=== PATIENT | female | born 1975 | race Caucasian/White ===

== ENCOUNTER 2018-04-25 09:42 | Emergency (ER) | payer OTHER ==
[2018-04-25] MEDS: IBUPROFEN 800 MG TAB PO (10:45)
== END 2018-04-25 11:33 | disposition home or self-care (01) ==
LOC: M ED 09:42
DX: S80.02XA Contusion of left knee, initial encounter (principal); S80.212A Abrasion, left knee, initial encounter; W01.0XXA Fall on same level from slipping, tripping and stumbling without subsequent striking against object, initial encounter; Y92.018 Other place in single-family (private) house as the place of occurrence of the external cause; Z79.51 Long term (current) use of inhaled steroids; Z88.0 Allergy status to penicillin; Z88.1 Allergy status to other antibiotic agents; Z88.2 Allergy status to sulfonamides; Z88.8 Allergy status to other drugs, medicaments and biological substances; F17.210 Nicotine dependence, cigarettes, uncomplicated
CPT/HCPCS: 73564

== ENCOUNTER 2019-10-23 08:37 | Emergency (ER) | payer OTHER ==
[~2019-10-23] VITALS: Ht 162.6 cm; Wt 105.4 kg
[~2019-10-23 08:37] MED LIST: FLON1SPR NARES
[2019-10-23] MEDS ORDERED: SING10TA32 PO (08:46)
[2019-10-23] MEDS ORDERED: GI COCKTAIL 50ML BTL(HYOSCYAMINE/MAALOX/LIDOCAINE VISCOUS)(1:3:1) PO ONE (09:15)
[2019-10-23] MEDS ORDERED: ONDANSETRON 4MG/2ML VIAL (J2405) IV ONE (09:15)
[2019-10-23] MEDS ORDERED: NS 1,000 ML IV ONE (09:15)
[2019-10-23 09:27] LABS: BASO # 0.1 10^3/uL (0.0-0.2); BASO % 0.7 % (0.0-1.0); EOS # 0.1 10^3/uL (0.0-0.5); EOS % 1.7 % (0.0-3.0); HEMATOCRIT 38.6 % (36.0-47.0); HEMOGLOBIN 11.7 g/dl (12.0-15.5); LYMPH # 2.1 10^3/uL (1.5-5.0); LYMPH % 27.5 % (24.0-44.0); MEAN CORPUSCULAR HEMOGLOBIN 23.6 pg (27.0-33.0); MEAN CORPUSCULAR HGB CONC 30.3 g/dl (32.0-36.5); MONO # 0.5 10^3/uL (0.0-0.8); MONO % 6.2 % (0.0-5.0); NEUTROPHILS # 4.9 10^3/uL (1.5-8.5); NEUTROPHILS % 63.6 % (36.0-66.0); PLATELET COUNT, AUTOMATED 428 10^3/uL (150-450); RED BLOOD COUNT 4.95 10^6/uL (4.00-5.40); WHITE BLOOD COUNT 7.6 10^3/uL (4.0-10.0)
[2019-10-23 09:59] LABS: ALBUMIN 3.7 GM/DL (3.2-5.2); BILIRUBIN,DIRECT 0.1 MG/DL (0.0-0.2); BILIRUBIN,TOTAL 0.4 MG/DL (0.2-1.0); TOTAL PROTEIN 7.2 GM/DL (6.4-8.2)
[2019-10-23] MEDS ORDERED: ZANT150T40 PO (11:07)
[2019-10-23 11:49] VITALS: BP 148/90
--- NOTE | 2019-10-23 11:53 | REP ---
RIGHT UPPER QUADRANT ULTRASOUND: Real-time sonographic evaluation of the right upper quadrant performed. Gallbladder is contracted. Gallstones are seen in the gallbladder. There is mild gallbladder wall thickening up to 5 mm. There is no intrahepatic or extrahepatic biliary dilatation, common bile duct measuring 4 mm. No free fluid is seen. The liver and pancreas are grossly unremarkable, pancreas is not optimally seen due to overlying bowel gas. Right kidney demonstrates no hydronephrosis with normal size 1.8 cm in length. IMPRESSION: Gallstones in a contracted gallbladder with mild wall thickening 5 mm. No free fluid or biliary dilatation. Electronically Signed by Kian Smith MD 10/23/2019 05:51 P
--- NOTE | 2019-10-23 20:42 | ECGEPIP ---
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
== END 2019-10-23 11:51 | disposition home or self-care (01) ==
LOC: M ED 08:37
DX: K80.20 Calculus of gallbladder without cholecystitis without obstruction (principal); R12 Heartburn; R42 Dizziness and giddiness; F17.200 Nicotine dependence, unspecified, uncomplicated; Z79.899 Other long term (current) drug therapy; Z88.0 Allergy status to penicillin
CPT/HCPCS: 76705; 80047; 80076; 81001; 83690; 84702; 85025; 93005; 96361; 96374; 99284; J2405

== ENCOUNTER 2019-12-27 09:19 | Day surgery (SDC) | payer OTHER ==
[~2019-12-27] VITALS: Ht 162.6 cm; Wt 99.3 kg
[~2019-12-27 09:19] MED LIST changes: +LR 1,000 ML IV ONE; +MECL12.589 PO; +MUCI1TAB16 PO; +PEPC1TAB5 PO; +SING10TA32 PO; +ZANT150T40 PO
[2019-12-27] MEDS ORDERED: fentaNYL 250 MCG/5 ML INJECTION (J3010) As Ordered ONE (09:23)
[2019-12-27] MEDS ORDERED: KETOROLAC 60 MG/2 ML VIAL (J1885) As Ordered ONE (09:23)
[2019-12-27] MEDS ORDERED: propofoL 200 MG/20 ML VIAL As Ordered ONE ×2 (09:23→13:38)
[2019-12-27] MEDS ORDERED: MIDAZOLAM INJ 2 MG/2 ML VIAL (J2250) As Ordered ONE (09:23)
[2019-12-27] MEDS ORDERED: ONDANSETRON 4MG/2ML VIAL (J2405) As Ordered ONE (09:23)
[2019-12-27] MEDS ORDERED: LIDOCAINE 2% INJ 100 MG/5 ML SDV (FOR ANES.) As Ordered ONE (09:23)
[2019-12-27] MEDS ORDERED: dexameTHASONE 4 MG/ML 1ML VIAL (J1100) As Ordered ONE (09:23)
[2019-12-27] MEDS ORDERED: ROCURONIUM BROMIDE 50 MG/5 ML VIAL As Ordered ONE ×2 (09:23→12:38)
[2019-12-27 10:48] LABS: HCG, SERUM QUALITATIVE NEGATIVE (NEGATIVE)
[2019-12-27] MEDS ORDERED: BUPIVACAINE HCL 0.25% 30 ML VIAL As Ordered ONE (11:49)
[2019-12-27] MEDS ORDERED: LACRILUBE (AKWA TEARS) OPHTH OINT 3.5 GM As Ordered ONE (12:21)
[2019-12-27] MEDS ORDERED: SUGAMMADEX SODIUM 500 MG/5 ML VIAL (BRIDION) As Ordered ONE (12:42)
[2019-12-27] MEDS ORDERED: ACETAMINOPHEN 1000MG 100ML IV BTL (OFIRMEV) (J0131 PER 10MG) As Ordered ONE (12:42)
[2019-12-27] MEDS ORDERED: ePHEDrine SULFATE 25 MG/5 ML(5MG/ML) SYRINGE As Ordered ONE (12:47)
[2019-12-27] MEDS ORDERED: LR 1,000 ML IV SCH (14:15)
[2019-12-27] MEDS ORDERED: oxyCODONE 5MG TAB PO PRN (14:15)
[2019-12-27] MEDS ORDERED: ONDANSETRON 4MG/2ML VIAL (J2405) IV PRN (14:15)
[2019-12-27] MEDS: fentaNYL 100 MCG/2 ML INJECTION (J3010) IV PRN ×2 (14:36→14:54)
[2019-12-27] MEDS ORDERED: ACETAMINOPHEN TAB 650MG DOSE (2X325MG) PO PRN (15:15)
[2019-12-27] MEDS ORDERED: IBUPROFEN 600 MG TAB PO PRN (15:15)
[2019-12-27] MEDS ORDERED: NORCO, ANEXSIA 5/325MG TABLET (HYDROcodone/ACETAMINOPHEN) PO PRN (15:15)
[2019-12-27 16:05] VITALS: BP 141/89
[2019-12-27] MEDS ORDERED: HYDR-3715 PO (17:09)
--- NOTE | 2019-12-28 07:17 | RO ---
DATE OF PROCEDURE: 12/27/2019 PREOPERATIVE DIAGNOSIS: Symptomatic gallstones. POSTOPERATIVE DIAGNOSIS: Symptomatic gallstones. PROCEDURE PERFORMED: Robotic-assisted laparoscopic cholecystectomy. SURGEON: Brian Matt MD STAFF FORESTER: BEAU Riggins. Shu was essential for assistance in placement of the trocars, docking and undocking of the robot, change of instruments and removal of the specimen as well as closure of the incisions. ANESTHESIA: General. INDICATIONS FOR PROCEDURE: Patient is a 44-year-old woman with a history of upper abdominal pains suggestive of biliary colic. She was found to have gallstones and is now for a laparoscopic cholecystectomy. OPERATIVE PROCEDURE: The patient was placed under general endotracheal anesthesia. The patient's abdomen was prepped and draped in a sterile fashion. 0.25% Marcaine was infiltrated at the trocar sites as needed. Initial entry was a small longitudinal incision just above the umbilicus. A Veress needle was inserted and after positive hanging drop test the abdomen was insufflated with carbon dioxide gas. An 8 mm port was placed over 5 mm scope and advanced through the abdominal wall without difficulty. Initial examination showed no evidence of trocar injury. The liver appeared normal. The gallbladder appeared perhaps slightly thick walled, but not acutely inflamed. Visualized portions of the small large bowel appeared normal. A second 8 mm port was placed in the left upper quadrant and two additional 8 mm robotic ports were placed into the right lower quadrant. The patient was tilted to an approximately 15 degree reverse Trendelenburg position. The patient cart of [email or web address] system was then brought into position and the endoscope port was docked. Targeting took place and the additional ports were then attached to the appropriate arms. Endoscopic scissors, forced bipolar and grasping retractor were then all inserted. I then moved to the control console to proceed with the procedure. The gallbladder was grasped and elevated. Dissection was begun at the gallbladder neck. The peritoneum was scored on both sides of the gallbladder neck. A hook cautery was then substituted for the scissors and dissection proceeded. The cystic duct was clearly identified and was dissected from surrounding structures. The cholecystic artery was also seen. Both structures were then doubly clipped with Hem-o-shaneka clips and divided. The gallbladder was then dissected free from the gallbladder bed using cautery dissection. The gallbladder was perforated and a small amount of bile was spilled into the subhepatic space. The dissection was then completed. A small bleeding point at the superior aspect of the gallbladder bed was thoroughly cauterized to control bleeding. The gallbladder was placed in an Endopouch. The right upper quadrant was then copiously irrigated with a suction solidworks drafter until clear. Inspection showed no evidence of any further bleeding or bile leak. The instruments were then removed and the robot was undocked. I returned to the side of the operating table. Using a hand laparoscope, a grasper was inserted through the former endoscope port at the supraumbilical site and the string of the specimen pouch was grasped. The patient was returned to a flat position and the abdomen was deflated and the trocars were all removed. The gallbladder was removed in the pouch through the supraumbilical site. It was necessary to incise the fascia slightly to allow this to pass. The fascia at the supraumbilical site was closed with two simple sutures of #0 Vicryl. The skin incisions were all closed with buried #4-0 Vicryl and Steri-Strips. Light dressings were applied. The patient tolerated the procedure well without apparent complication. She was awakened in the operating room, extubated and moved to the recovery room in stable condition.
== END 2019-12-27 16:15 | disposition home or self-care (01) ==
LOC: M SDC 09:19
PROVIDERS: ATTEND Surgery
DX: K80.10 Calculus of gallbladder with chronic cholecystitis without obstruction (principal); K21.9 Gastro-esophageal reflux disease without esophagitis; G43.909 Migraine, unspecified, not intractable, without status migrainosus; F17.218 Nicotine dependence, cigarettes, with other nicotine-induced disorders; Z79.899 Other long term (current) drug therapy; Z88.0 Allergy status to penicillin; Z88.2 Allergy status to sulfonamides; Z88.8 Allergy status to other drugs, medicaments and biological substances
CPT/HCPCS: 36415; 47562; 84703; 88304; J0131; J1100; J1885; J2250; J2405; J3010

== ENCOUNTER 2020-06-14 07:42 | Emergency (ER) | payer OTHER ==
[~2020-06-14] VITALS: Ht 162.6 cm; Wt 87.5 kg
[~2020-06-14 07:42] MED LIST changes: +HYDR-3715 PO; -LR 1,000 ML IV ONE
[2020-06-14] MEDS ORDERED: ADVIL (07:53)
[2020-06-14] MEDS ORDERED: NS 1,000 ML IV ONE (08:15)
[2020-06-14 08:50] LABS: BASO % 0.5 % (0.0-1.0); EOS # 0.1 10^3/uL (0.0-0.5); EOS % 0.7 % (0.0-3.0); HEMATOCRIT 39.2 % (36.0-47.0); HEMOGLOBIN 11.9 g/dl (12.0-15.5); LYMPH # 1.3 10^3/uL (1.5-5.0); LYMPH % 17.5 % (24.0-44.0); MEAN CORPUSCULAR HEMOGLOBIN 22.8 pg (27.0-33.0); MEAN CORPUSCULAR HGB CONC 30.4 g/dl (32.0-36.5); MEAN CORPUSCULAR VOLUME 75.1 fl (80.0-96.0); MONO # 0.4 10^3/uL (0.0-0.8); NEUTROPHILS # 5.8 10^3/uL (1.5-8.5); NEUTROPHILS % 75.9 % (36.0-66.0); PLATELET COUNT, AUTOMATED 443 10^3/uL (150-450); RED BLOOD COUNT 5.22 10^6/uL (4.00-5.40); WHITE BLOOD COUNT 7.7 10^3/uL (4.0-10.0)
[2020-06-14 09:18] LABS: ALBUMIN 3.8 GM/DL (3.2-5.2); ALT/SGPT 22 U/L (12-78); BILIRUBIN,DIRECT 0.1 MG/DL (0.0-0.2); BILIRUBIN,TOTAL 0.5 MG/DL (0.2-1.0); BLOOD UREA NITROGEN 10 MG/DL (7-18); CALCIUM LEVEL 9.1 MG/DL (8.5-10.1); CARBON DIOXIDE LEVEL 24 MEQ/L (21-32); CHLORIDE LEVEL 110 MEQ/L (98-107); CREATININE FOR GFR 0.69 MG/DL (0.55-1.30); GLOMERULAR FILTRATION RATE > 60.0 (>58); GLUCOSE, FASTING 77 MG/DL (70-100); LIPASE 99 U/L (73-393); POTASSIUM SERUM 4.4 MEQ/L (3.5-5.1); SODIUM LEVEL 142 MEQ/L (136-145); TOTAL PROTEIN 7.7 GM/DL (6.4-8.2)
[2020-06-14 10:18] LABS: HCG, SERUM QUALITATIVE NEGATIVE (NEGATIVE)
[2020-06-14] MEDS ORDERED: ISOVUE-370 76% 100ML VIAL As Ordered ONE (10:23)
--- NOTE | 2020-06-14 11:00 | REPVR ---
PROCEDURE INFORMATION: Exam: CT Abdomen And Pelvis With Contrast Exam date and time: 06/14/2020 10:32 AM Age: 45 years old Clinical indication: Abdominal pain; Additional info: Llq pain, concern for divertic TECHNIQUE: Imaging protocol: Computed tomography of the abdomen and pelvis with intravenous contrast. Radiation optimization: All CT scans at this facility use at least one of these dose optimization techniques: automated exposure control; mA and/or kV adjustment per patient size (includes targeted exams where dose is matched to clinical indication); or iterative reconstruction. Contrast material: ISOVIEW 370; Contrast volume: 100 ml; Contrast route: INTRAVENOUS (IV); COMPARISON: GALLBLADDER US 10/23/2019 9:52 AM FINDINGS: Pleural space: There is a small 4 mm pleural tag in the left lower lobe image 201/22. Liver: Liver is moderately fatty but not enlarged. Gallbladder and bile ducts: There has been a cholecystectomy. Pancreas: Normal. No ductal dilation. Spleen: Normal. No splenomegaly. Adrenals: There is enlargement of the left adrenal gland with a 15 x 16 mm mass on image 201/37 likely adenomatous. There is a 2nd lesion measuring 14 x 12 mm involving the lateral maury. Kidneys and ureters: Normal. No hydronephrosis. Stomach and bowel: The colon is mostly decompressed. However, there may be additional bowel wall thickening seen involving the sigmoid colon possibly a mild colitis. There is no loss of diverticulitis. Appendix: Appendix is seen is unremarkable. Intraperitoneal space: Unremarkable. No free air. No significant fluid collection. Vasculature: Unremarkable. No abdominal aortic aneurysm. Lymph nodes: There are small bilateral groin lymph nodes. Bladder: Unremarkable as visualized. Reproductive: Unremarkable as visualized. Bones/joints: Unremarkable. No acute fracture. Soft tissues: Unremarkable. IMPRESSION: 1. No evidence of diverticulitis. The colon is mostly decompressed but there may be a mild superimposed sigmoid colitis. There is however, no inflammatory changes in the surrounding fat. 2. Left adrenal lesions. Recommend adrenal CT. May consider chemical shift MRI (CS-MR). Electronically signed by: Masoud Adams On 06/14/2020 11:00:46 AM
[2020-06-14 11:28] VITALS: BP 125/68
--- NOTE | 2020-06-16 15:27 | ED PDOC ---
Post-Departure Follow-Up pascale cook faxed formal report of ct abd/p for fu Guille Joseph MD Jun 16, 2020 15:27
== END 2020-06-14 11:35 | disposition home or self-care (01) ==
LOC: M ED 07:42
DX: E27.9 Disorder of adrenal gland, unspecified (principal); K21.9 Gastro-esophageal reflux disease without esophagitis; H81.09 Meniere's disease, unspecified ear; Z87.448 Personal history of other diseases of urinary system; F17.200 Nicotine dependence, unspecified, uncomplicated; Z79.899 Other long term (current) drug therapy; Z88.0 Allergy status to penicillin; Z88.8 Allergy status to other drugs, medicaments and biological substances
CPT/HCPCS: 74177; 80048; 80076; 83690; 84703; 85025; 96360; 99284; Q9967